=== PATIENT | female | born 1950 | race Two or more races ===

== ENCOUNTER 2016-11-29 12:54 | Outpatient (CLI) | payer MEDICARE, MEDICAID | END 2016-11-29 23:59 | disposition home or self-care (01) | LOC: RAD 12:54 | PROVIDERS: ATTEND Family Medicine | DX: M47.892 Other spondylosis, cervical region (principal); M25.512 Pain in left shoulder; M77.52 Other enthesopathy of left foot and ankle | CPT/HCPCS: 72050-TC; 73030-TC; 73630-TC ==

== ENCOUNTER 2016-12-13 12:27 | Outpatient (CLI) | payer MEDICARE, MEDICAID | END 2016-12-13 23:59 | disposition home or self-care (01) | LOC: RAD 12:27 | PROVIDERS: ATTEND Family Medicine | DX: M17.11 Unilateral primary osteoarthritis, right knee (principal); M54.2 Cervicalgia; M16.12 Unilateral primary osteoarthritis, left hip; M47.892 Other spondylosis, cervical region; I70.0 Atherosclerosis of aorta; M51.36 Other intervertebral disc degeneration, lumbar region | CPT/HCPCS: 72040-TC; 72100-TC; 73510-TC; 73562 ==

== ENCOUNTER 2016-12-20 08:59 | Outpatient (CLI) | payer MEDICARE, MEDICAID ==
[2016-12-21] MEDS ORDERED: HYDROCODONE/APAP 5/325MG 1 EACH TABLET ONE (07:24)
== END 2016-12-20 23:59 | disposition home or self-care (01) ==
LOC: CT 08:59
PROVIDERS: ATTEND Family Medicine
DX: M19.012 Primary osteoarthritis, left shoulder (principal); M25.412 Effusion, left shoulder; M62.512 Muscle wasting and atrophy, not elsewhere classified, left shoulder; M17.12 Unilateral primary osteoarthritis, left knee
CPT/HCPCS: 73200-TC; 73700-TC

== ENCOUNTER 2017-05-06 09:55 | Outpatient (CLI) | payer MEDICARE, MEDICAID | END 2017-05-06 23:59 | disposition home or self-care (01) | LOC: RAD 09:55 | PROVIDERS: ATTEND Family Medicine | DX: Z01.818 Encounter for other preprocedural examination (principal); M19.012 Primary osteoarthritis, left shoulder; M19.011 Primary osteoarthritis, right shoulder | CPT/HCPCS: 71020; A4606; Z7610 ==

== ENCOUNTER 2017-06-16 06:48 | Emergency (ER) | payer MEDICARE, MEDICAID ==
[~2017-06-16] VITALS: Ht 121.9 cm; Wt 90.7 kg
[2017-06-16 07:29] VITALS: BP 184/79
--- NOTE | 2017-06-16 08:04 | NUR ---
Patient does not wish to proceed with medical care recommended by Dr. Patricio. Patient given information related to possible complications, up to and including , which could occur as a result of leaving the hospital at this time. Patient verbalizes understanding of risks involved due to leaving against medical advice. Patient has refused to sign AMA form. Charge nurse aware.
--- NOTE | 2017-06-16 08:08 | NUR ---
SEEN BY DR DIAMOND,REFUSED MEDICATION AND TESTS RECOMMENDED BY DR DIAMOND AND DEMANDED AN MRI INSTEAD. WHEN TOLD THAT SHE DOESN'T NEED MRI WHICH IS NOT AVAILABLE ALSO AT THIS TIME, SHE DECIDED TO LEAVE BISHOP BUT REFUSED TO SIGN.
== END 2017-06-16 08:24 | disposition left against medical advice (07) ==
LOC: ER 06:52
DX: M25.512 Pain in left shoulder (principal); G89.29 Other chronic pain
CPT/HCPCS: A4606; Z7502; Z7610

== ENCOUNTER 2017-06-16 11:26 | Outpatient (CLI) | payer MEDICARE, MEDICAID | END 2017-06-16 23:59 | disposition home or self-care (01) | LOC: RAD 11:26 | PROVIDERS: ATTEND Family Medicine | DX: M19.012 Primary osteoarthritis, left shoulder (principal); M47.894 Other spondylosis, thoracic region; R10.9 Unspecified abdominal pain | CPT/HCPCS: 71020-TC; 73030-TC ==

== ENCOUNTER 2017-11-29 11:03 | Outpatient (CLI) | payer MEDICARE, MEDICAID | END 2017-11-29 23:59 | disposition home or self-care (01) | LOC: CT 11:03 | PROVIDERS: ATTEND Family Medicine | DX: S46.912A Strain of unspecified muscle, fascia and tendon at shoulder and upper arm level, left arm, initial encounter (principal); M25.412 Effusion, left shoulder; M62.512 Muscle wasting and atrophy, not elsewhere classified, left shoulder; M25.861 Other specified joint disorders, right knee; X58.XXXA Exposure to other specified factors, initial encounter; Y93.89 Activity, other specified; Y92.89 Other specified places as the place of occurrence of the external cause; Y99.8 Other external cause status | CPT/HCPCS: 73200-TC; 73562 ==

== ENCOUNTER 2019-07-30 11:30 | Outpatient (CLI) | payer MEDICARE, MEDICAID | END 2019-07-30 23:59 | disposition home or self-care (01) | LOC: RAD 11:30 | PROVIDERS: ATTEND Family Medicine | DX: Z01.818 Encounter for other preprocedural examination (principal); I51.7 Cardiomegaly; I70.0 Atherosclerosis of aorta; J84.10 Pulmonary fibrosis, unspecified | CPT/HCPCS: 71046 ==

== ENCOUNTER 2022-09-30 11:08 | Outpatient (CLI) | payer MEDICARE, MEDICAID | END 2022-09-30 23:59 | disposition home or self-care (01) | LOC: RAD 11:08 | PROVIDERS: ATTEND Family Medicine | DX: M19.012 Primary osteoarthritis, left shoulder (principal); M19.011 Primary osteoarthritis, right shoulder; M43.16 Spondylolisthesis, lumbar region; M47.816 Spondylosis without myelopathy or radiculopathy, lumbar region; M41.86 Other forms of scoliosis, lumbar region; M25.511 Pain in right shoulder; M25.512 Pain in left shoulder; M54.9 Dorsalgia, unspecified; M51.34 Other intervertebral disc degeneration, thoracic region; I70.0 Atherosclerosis of aorta | CPT/HCPCS: 72074-TC; 72100-TC; 73030-TC ==

== ENCOUNTER 2022-12-15 11:07 | Outpatient (CLI) | payer MEDICARE, OTHER | END 2022-12-15 23:59 | disposition home or self-care (01) | LOC: CARD 11:07 | PROVIDERS: ATTEND Family Medicine | DX: M79.89 Other specified soft tissue disorders (principal) ==